=== PATIENT | female | born 1965 | race Caucasian/White ===

== ENCOUNTER → 2024-07-17 18:46 | Outpatient (REF) | payer OTHER, SELFPAY | LOC: WDC 18:46 | PROVIDERS: ATTENDING PHYSICIAN Nurse Practitioner Family | DX: Z12.31 Encounter for screening mammogram for malignant neoplasm of breast (principal) | CPT/HCPCS: 77063; 77067 ==

== ENCOUNTER 2024-08-19 05:16 | Emergency (ER) | payer OTHER, SELFPAY ==
[2024-08-19 05:18] VITALS: BP 133/95
[2024-08-19 05:32] VITALS: BP 135/74
[2024-08-19 05:39] VITALS: BMI 24.0
--- NOTE | 2024-08-19 05:44 | EDRN ---
Pt holding the R side of her head. Pt had a cavity filled couple weeks ago and finished a course of antibiotics. Pt had a L sided sore throat 2 weeks ago and says by Mon/ she was feeling good. night pt developed a R sided sore
throat and felt ill again. Yesterday, pt says the R side of her throat was still sore, her ears 'don't feel right' and she has been having 'pulsating twinges' on the R side of her head. Pt adds this area is sensitive and her also her hair is
sensitive to touch. No known injury to head. Pt has been taking tylenol and ibuprofen with last dose of 2 ibuprofen ten minutes before arrival in ED. Pt denies cp, sob, n/v, photophobia, fever/chills/cough, visual disturbance.
[2024-08-19 06:00] VITALS: BP 121/80
--- NOTE | 2024-08-19 06:16 | ED.GENMED ---
History of Present Illness
<Garcia Carlisle MD, Resident - Last Filed: 08/19/24 08:45>
General
Chief Complaint: Throat Problem
Source: patient and family
Time Seen by Provider: 08/19/24 06:01
Travel History
Have you traveled to any high risk areas for coronavirus over the past 14 days?: No
Have you had any contact with someone who has COVID-19?: Yes
Comment: Son; a month ago
Do you have any symptoms of coronavirus? Fever > 100 degrees, chills, cough, shortness of breath, sore throat, loss of taste or smell, muscle aches, or headache?: No
History of Present Illness
History of Present Illness:
Anahi Sandy, age 59, has had a sore throat for the past 10 days. She had a dental on her left side 3 weeks ago. She completed a course of amoxicillin prescribed by her dentist for the sore throat. The sore throat got worse yesterday, and now has
pain with swallowing and a right-sided headache. She has a history of migraine but says that the headache feels different than her migraine pains. The headache is intermittently throbbing and worse with touch, sudden movements and bright lights. She
was unable to sleep today due to pain. She took ibuprofen before coming to the emergency, which helped somewhat.
Past History
<Garcia Carlisle MD, Resident - Last Filed: 08/19/24 08:45>
Past History
ED Past Medical History: Other (migraine disorder)
ED Past Surgical History: Gynecological (D&C)
Social History
Tobacco: Non-smoker
Alcohol: Occasional
Personal:
Living: with family
Family History
Family History: Negative Diabetes, Hypertension, Early CAD, Asthma or Cancer
Review of Systems
<Garcia Carlisle MD, Resident - Last Filed: 08/19/24 08:45>
Review of Systems
All Other Systems: Not applicable
Constitutional: Reports fatigue
EENT: Reports sore throat
Respiratory: Reports no symptoms
Cardiac: Reports no symptoms
ABD/GI: Reports no symptoms
: Reports no symptoms
Musculoskeletal: Reports no symptoms
Skin: Reports no symptoms
Neurological: Reports headache
Endocrine: Reports no symptoms
Hematologic/Lymphatic: Reports no symptoms
Psychiatric: Reports no symptoms
Phy Exam
<Garcia Carlisle MD, Resident - Last Filed: 08/19/24 08:45>
General Physical Exam
General Presentation: well appearing and no apparent distress
General Skin: warm and dry
General Habitus: normal
General Mental: alert
General Hydration: appears well hydrated
ENT Exam
ENT Exam: EOMI, pharynx normal, neck supple, normocephalic and lymphnodes (right anterior cervical)
Eye Exam
Eye Exam: PERRL, cornea clear and conjunctiva normal
Cardiovascular Exam
Cardiovascular Exam: regular rate/rhythm, no edema, no murmur and normal peripheral pulses
Pulmonary Exam
Pulmonary Exam: lungs clear, no respiratory distress, no rales, no crackles, no rhonchi, no stridor, no wheezing and no cough
Gastrointestinal Exam
Gastrointestinal Exam: normal bowel sounds, non tender, soft, no organomegaly, no pulsatile mass and non distended
Neurological Exam
Neurological Exam: alert, oriented x3, no motor deficits and speech normal
Musculoskeletal Exam
Musculoskeletal Exam: full ROM and no edema
Skin Exam
Skin Exam: normal color, warm/dry, no rash and no petechia
Psychiatric Exam
Psychiatric Exam: normal mood/affect
Course
<Garcia Carlisle MD, Resident - Last Filed: 08/19/24 08:45>
Orders/Labs/Results
Orders:
Orders
08/19/24 06:28
COVID-19 Antigen Urgent
Source: Nasal Swab
Complete Blood Count/With Diff Urgent
Comprehensive Metabolic Panel Urgent
Comment: ADD ON
Monotest Urgent
Comment: ADD ON
Influenza A+B Rapid Molecular Urgent
JASON Source: Nasal Swab
Specimen Description:
08/19/24 06:33
Add On- LAB Urgent
Tests Added?: CMP values to BMP
08/19/24 06:34
Acetaminophen [Tylenol] 1,000 mg PO NOW STA
08/19/24 06:38
Add On- LAB Urgent
Tests Added?: mono
08/19/24 06:42
Rapid Strep Group A Urgent
JASON Source: Throat/Pharynx
Specimen Description:
Date Specimen was Collected: 08/19/24
Time Specimen was Collected: 06:38
Abnormal Lab Results
08/19/24
06:28
RBC 4.04 L 10^6/uL
(4.20-5.40)
Hgb 11.9 L g/dL
(12.0-16.0)
Hct 35.5 L %
(37.0-47.0)
BUN 19 H mg/dl
(7-17)
Glucose 105 H mg/dl
(70-99)
Alkaline Phosphatase 33 L U/L
(38-126)
08/19/24 06:28
08/19/24 06:28
Vital Signs
Initial and Last Documented VS:
Initial Vital Signs
Temp Pulse Resp BP Pulse Ox
98.8 F 88 22 133/95 97
08/19/24 05:18 08/19/24 05:18 08/19/24 05:18 08/19/24 05:18 08/19/24 05:18
Last Documented Vital Signs
Temp Pulse Resp BP Pulse Ox
98.8 F 80 16 119/81 100
08/19/24 05:18 08/19/24 08:11 08/19/24 08:11 08/19/24 08:11 08/19/24 08:11
<Wilma Waite MD - Last Filed: 08/19/24 08:31>
Orders/Labs/Results
Orders:
Orders
08/19/24 06:28
COVID-19 Antigen Urgent
Source: Nasal Swab
Complete Blood Count/With Diff Urgent
Comprehensive Metabolic Panel Urgent
Comment: ADD ON
Monotest Urgent
Comment: ADD ON
Influenza A+B Rapid Molecular Urgent
JASON Source: Nasal Swab
Specimen Description:
08/19/24 06:33
Add On- LAB Urgent
Tests Added?: CMP values to BMP
08/19/24 06:34
Acetaminophen [Tylenol] 1,000 mg PO NOW STA
08/19/24 06:38
Add On- LAB Urgent
Tests Added?: mono
08/19/24 06:42
Rapid Strep Group A Urgent
JASON Source: Throat/Pharynx
Specimen Description:
Date Specimen was Collected: 08/19/24
Time Specimen was Collected: 06:38
Abnormal Lab Results
08/19/24
06:28
RBC 4.04 L 10^6/uL
(4.20-5.40)
Hgb 11.9 L g/dL
(12.0-16.0)
Hct 35.5 L %
(37.0-47.0)
BUN 19 H mg/dl
(7-17)
Glucose 105 H mg/dl
(70-99)
Alkaline Phosphatase 33 L U/L
(38-126)
08/19/24 06:28
08/19/24 06:28
Vital Signs
Initial and Last Documented VS:
Initial Vital Signs
Temp Pulse Resp BP Pulse Ox
98.8 F 88 22 133/95 97
08/19/24 05:18 08/19/24 05:18 08/19/24 05:18 08/19/24 05:18 08/19/24 05:18
Last Documented Vital Signs
Temp Pulse Resp BP Pulse Ox
98.8 F 80 16 119/81 100
08/19/24 05:18 08/19/24 08:11 08/19/24 08:11 08/19/24 08:11 08/19/24 08:11
<Garcia Carlisle MD, Resident - Last Filed: 08/19/24 08:45>
*Critical Care Note
Total Time (30-74mins, 75-104mins- exclusive of procedures): Not Applicable
<Garcia Carlisle MD, Resident - Last Filed: 08/19/24 08:45>
Update Note
Update Note:
Pain better controlled with acetaminophen. Blood work unremarkable. Negative for COVID-19, influenza and mono. Unlikely to have an abscess or a bacterial infection. Likely a viral syndrome. Discussed rest and NSAIDs for supportive care.
ED Attending Note
<Garcia Carlisle MD, Resident - Last Filed: 08/19/24 08:45>
-
Portions of this chart may have been created with voice recognition software.� Occasional wrong word or��sound alike� substitutions may have occurred due to the inherent limitations of voice recognition software.
<Wilma Waite MD - Last Filed: 08/19/24 08:31>
ED Attending Note
Patient seen and examined by attending physician: Yes
I performed a history and physical exam of patient and discussed management with resident, I reviewed resident's note and agree with documented findings and plan of care.: Yes
ED Attending Note:
Patient appears nontoxic. She is no meningismus. On exam, she has no sign of uvular deviation nor tonsillar abscess. She has no trismus or pooled saliva pooling
She has mild bilateral cervical lymphadenopathy but no swelling or erythema of face or neck to suggest soft tissue abscess. Patient has no temporal scalp tenderness to suggest temporal to right is. Patient likely has viral illness patient has
already completed 7 days of amoxicillin. Unlikely to be bacterial.
Discharge Plan
Departure
Patient Disposition: Home (Routine Discharge)
Date of Disposition: 08/19/24
Time of Disposition: 08:41
Patient with high blood pressure during this ER visit?: No
Condition: Good
Discharge Problem:
Acute viral syndrome
Instructions: Sore Throat, Adult (DC)
Prescriptions:
No Action
No Current Medications
0
Referrals:
Neto Hoyt, DO [Family Provider] -
Stand Alone Forms: Return to Work
Activity Restrictions/Additional Instructions:
Rest for the next 3-5 days, until symptoms improve. Take acetaminophen 650 mg and ibuprofen 400 mg 6-8 hours as needed for headache and sore throat for the next 3-5 days.
Interventions
Interventions:
*Risk Screen - Suicide Last Done: 08/19/24 05:18
*General Assessment Last Done: 08/19/24 05:39
*Neglect/Abuse Screening Last Done: 08/19/24 05:39
ED- Fall Risk Assessment Last Done: 08/19/24 05:39
*ED COVID-19 Vaccine History Last Done: 08/19/24 05:39
ED-EENT Assessment Last Done: 08/19/24 05:39
ED- Pulmonary Assessment Last Done: 08/19/24 05:39
Discharge Date and Time
Print Language: FRISIAN
[2024-08-19 06:41] LABS: % Basophils 0.6 % (0-2); % Eosinophils 1.2 % (0-6); % Immature Granulocytes 0.2 % (0-0.5); % Monocytes 8.3 % (1.7-9.3); % Neutrophils 56.7 % (42.2-75.2); Absolute Eosinophils 0.1 10^3/uL (0-0.7); Absolute Lymphocytes 1.6 10^3/uL (1.2-3.4); Absolute Monocytes 0.4 10^3/uL (0.1-0.6); Absolute Neutrophils 2.7 10^3/uL (1.4-6.5); Hematocrit 35.5 % (37.0-47.0); Hemoglobin 11.9 g/dL (12.0-16.0); Mean Corp Hgb Conc. 33.5 g/dL (33.0-37.0); Mean Corpuscular Hgb 29.5 pg (27.0-31.0); Mean Corpuscular Volume 87.9 fL (81.0-99.0); Mean Platelet Volume 8.8 fL (7.4-10.4); Nucleated Red Blood Cells % 0 %; Platelet Count 206 10^3/uL (130-400); Red Blood Cell Count 4.04 10^6/uL (4.20-5.40); Red Cell Dist. Width 12.6 % (11.5-14.5); White Blood Cell Count 4.8 10^3/uL (4.8-10.8)
[2024-08-19] MEDS: TYLENOL 1000 MG PO (06:42)
[2024-08-19 06:54] LABS: ALT (SGPT) 16 U/L (0-35); AST (SGOT) 19 U/L (14-36); Alkaline Phosphatase 33 U/L (38-126); Blood Urea Nitrogen 19 mg/dl (7-17); Carbon Dioxide 27 mmol/L (22-30); Chloride 106 mmol/L (98-107); Estimated Creatinine Clearance 64 ml/min; Glucose 105 mg/dl (70-99); Potassium 4.3 mmol/L (3.5-5.1); Sodium 142 mmol/L (135-145); Total Bilirubin 0.5 mg/dl (0.2-1.3); Total Protein 6.3 g/dl (6.3-8.2); eGFR > 60.00
[2024-08-19 06:58] LABS: COVID-19 Antigen Negative (Negative)
[2024-08-19 07:00] VITALS: BP 126/86
[2024-08-19 07:31] LABS: Monotest Negative (Negative)
[2024-08-19 08:00] VITALS: BP 119/81
[2024-08-19 08:11] VITALS: BP 119/81
== END 2024-08-19 08:53 | disposition home or self-care (01) ==
LOC: EMR 05:16
PROVIDERS: Student in an Organized Health Care Education/Training Program; EMERGENCY PHYSICIAN Emergency Medicine; FAMILY PHYSICIAN Internal Medicine
DX: B34.9 Viral infection, unspecified (principal); Z11.52 Encounter for screening for COVID-19
CPT/HCPCS: 99283; 80053; 85025; 86308; 87070; 87502; 87811; 87880

== ENCOUNTER 2024-09-06 00:34 | Emergency (ER) | payer OTHER, SELFPAY ==
[2024-09-06 00:45] VITALS: BP 131/96
--- NOTE | 2024-09-06 00:56 | ED.GENMED ---
History of Present Illness
<RUBÉN Lee - Last Filed: 09/06/24 02:50>
General
Chief Complaint: Fatigue
Source: patient
Exam Limitations: none
Time Seen by Provider: 09/06/24 00:56
History of Present Illness
History of Present Illness:
This is a 59 year old female that comes in with multiple complaints. States that she was here in July and she had a sore throat and right sided headache. States that she had a fever and was just sleeping all the time. States that this all
stated after her dentist removed to filling and replaced them. States that she then had to shave the fillings down. States that after this she started with a cough. States that she has been to the PCP twice in the past month. States that she was
first put on Amoxicillin in July. Then a steroid and after this was Cefdinir which she finished 2 days ago. States that she has been coughing so hard that it will make her vomit. States that she has nausea, diarrhea, right sided headache and
there is a little numbness on the right lower chin. Denies any fever, chills, chest pain, SOB, abd pain, vomiting, dizziness, urinary burning.
Past History
<RUBÉN Lee - Last Filed: 09/06/24 02:50>
Past History
ED Past Medical History: Other (Back pain, constipation, hernia)
ED Past Surgical History: Gynecological (D&E )
Social History
Alcohol: None
Personal:
Living: with family
<BÁRBARA Arnold - Last Filed: >
Past History
ED Past Medical History: Other (migraine disorder)
ED Past Surgical History: Gynecological (D&C)
Social History
Tobacco: Non-smoker
Alcohol: Occasional
Personal:
Living: with family
Family History
Family History: Negative Diabetes, Hypertension, Early CAD, Asthma or Cancer
Review of Systems
<RUBÉN Lee - Last Filed: 09/06/24 02:50>
Review of Systems
All Other Systems: ROS reviewed and negative except as documented in HPI and ROS
Constitutional: Reports fatigue; Denies fever or chills
EENT: Reports no symptoms
Respiratory: Reports cough; Denies trouble breathing
Cardiac: Denies chest pain
ABD/GI: Reports nausea and diarrhea; Denies abdominal pain or vomiting
: Reports no symptoms; Denies dysuria, frequency or urgency
Musculoskeletal: Reports no symptoms
Skin: Reports no symptoms
Neurological: Reports headache; Denies dizzy
Psychiatric: Reports no symptoms
Phy Exam
<RUBÉN Lee - Last Filed: 09/06/24 02:50>
General Physical Exam
General Presentation: no apparent distress
General age: appears stated age
General Skin: warm and dry
General Habitus: normal
General Mental: alert
General Hydration: appears well hydrated
ENT Exam
ENT Exam: TM's normal, pharynx normal and neck supple
Eye Exam
Eye Exam: EOMI
Cardiovascular Exam
Cardiovascular Exam: regular rate/rhythm, no edema, no murmur and normal peripheral pulses
Pulmonary Exam
Pulmonary Exam: lungs clear, no respiratory distress, no rales, chest non tender, no crackles, no rhonchi and no cough
Gastrointestinal Exam
Gastrointestinal Exam: normal bowel sounds, non tender, soft, no pulsatile mass and non distended
Musculoskeletal Exam
Musculoskeletal Exam: full ROM and no edema
Skin Exam
Skin Exam: normal color, warm/dry, no rash and no petechia
Psychiatric Exam
Psychiatric Exam: normal mood/affect
Sepsis
<RUBÉN Lee - Last Filed: 09/06/24 02:50>
Sepsis Screening
Sepsis Assessment: Sepsis Ruled Out
Sepsis Screen
Sepsis Screen: Sepsis Ruled Out
Date: 09/06/24
Time: 02:50
<BÁRBARA Arnold - Last Filed: >
Sepsis Screen
Sepsis Screen: Possible Sepsis
Date: 09/06/24
Time: 00:56
Course
<RUBÉN Lee - Last Filed: 09/06/24 02:50>
Orders/Labs/Results
Orders:
Orders
09/06/24 01:28
CT Cervical Spine W/o Iv Contr Urgent
Comment:
Reason For Exam: neck pain
CT Head W/o Iv Contrast Urgent
Comment:
Reason For Exam: Right sided headache,
09/06/24 01:33
COVID-19 Antigen Urgent
Source: Nasal Swab
Complete Blood Count/With Diff Urgent
Comprehensive Metabolic Panel Urgent
D-Dimer Urgent
Monotest Urgent
Influenza A+B Rapid Molecular Urgent
JASON Source: Nasal Swab
Specimen Description:
09/06/24 01:40
Electrocardiogram (*1) Urgent
Reason for Study: Fatigue / Weakness
EKG- Treatment ONCE
09/06/24 02:13
CR Chest - 2 Views Urgent
Comment:
Reason For Exam: Cough
Abnormal Lab Results
09/06/24
01:33
RBC 3.96 L 10^6/uL
(4.20-5.40)
Hgb 11.9 L g/dL
(12.0-16.0)
Hct 33.4 L %
(37.0-47.0)
Glucose 101 H mg/dl
(70-99)
Alkaline Phosphatase 32 L U/L
(38-126)
09/06/24 01:33
10/18/24 01:33
H/H slightly low. Glucose nonfasting. ALk phos slightly low. D-dimer <0.27, Yazoo negative, COVID and Influenza negative.
Vital Signs
Initial and Last Documented VS:
Initial Vital Signs
Temp Pulse Resp BP Pulse Ox
99.5 F 99 22 131/96 96
09/06/24 00:45 09/06/24 00:45 09/06/24 00:45 09/06/24 00:45 09/06/24 00:45
Last Documented Vital Signs
Temp Pulse Resp BP Pulse Ox
99.2 F 85 18 137/82 95
09/06/24 01:19 09/06/24 02:15 09/06/24 02:00 09/06/24 02:00 09/06/24 02:15
<Tiarra Samuel [facility] - Last Filed: >
Orders/Labs/Results
Orders:
Orders
09/06/24 01:28
CT Cervical Spine W/o Iv Contr Urgent
Comment:
Reason For Exam: neck pain
CT Head W/o Iv Contrast Urgent
Comment:
Reason For Exam: Right sided headache,
09/06/24 01:33
COVID-19 Antigen Urgent
Source: Nasal Swab
Complete Blood Count/With Diff Urgent
Comprehensive Metabolic Panel Urgent
D-Dimer Urgent
Monotest Urgent
Influenza A+B Rapid Molecular Urgent
JASON Source: Nasal Swab
Specimen Description:
09/06/24 01:40
Electrocardiogram (*1) Urgent
Reason for Study: Fatigue / Weakness
EKG- Treatment ONCE
09/06/24 02:13
CR Chest - 2 Views Urgent
Comment:
Reason For Exam: Cough
Abnormal Lab Results
09/06/24
01:33
RBC 3.96 L 10^6/uL
(4.20-5.40)
Hgb 11.9 L g/dL
(12.0-16.0)
Hct 33.4 L %
(37.0-47.0)
Glucose 101 H mg/dl
(70-99)
Alkaline Phosphatase 32 L U/L
(38-126)
09/06/24 01:33
09/06/24 01:33
Vital Signs
Initial and Last Documented VS:
Initial Vital Signs
Temp Pulse Resp BP Pulse Ox
99.5 F 99 22 131/96 96
09/06/24 00:45 09/06/24 00:45 09/06/24 00:45 09/06/24 00:45 09/06/24 00:45
Last Documented Vital Signs
Temp Pulse Resp BP Pulse Ox
99.2 F 85 18 137/82 95
09/06/24 01:19 09/06/24 02:15 09/06/24 02:00 09/06/24 02:00 09/06/24 02:15
<RUBÉN Lee - Last Filed: 09/06/24 02:50>
MDM/Problems Addressed
Differential Diagnosis Includes:
Yazoo, Lyme disease, PE
MDM/Problems Addressed:
This is a 59 year old female that comes in with multiple complaints. States that this has been going on since July and she can't take it any more. States that she has had labs and seen her PCP. States that she has been on antibiotics and
steroids. States that she has right sided head pain, and is very fatigued. states that she has been in bed most of the past month.
Will check labs. CT head and neck.
Back into see patient and . Explained that her blood work is normal. COVID and influenza are negative. D-dimer and mono negative. CT of the head and cervical spine normal. Patient to follow up with the ENT specialist for further evaluation.
Explained to patient that this may all be a viral illness. Patient to return with any concerns.
Chronic conditions affecting care:
NA
Acute Exacerbation and/or Progression of Chronic Illness:
NA
<RUBÉN Lee - Last Filed: 09/06/24 02:50>
*Radiology
Radiology exam reviewed: preliminary read by ED provider (Chest- Negative for active disease) and radiology read reviewed (CT head and cervical spine- Night hawk- Head- NO evidence for acute intracranial process or calvarial fractures. Cervical
spine No evidence for acute fracture. Slight Multilevel spondylolisthesis. Mild degenerative changes. )
*Pulse Oximetry
Patient hypoxic: no
*EKG
Interpreted by ED Provider?: Yes
Heart Rate: 75
Rate: normal
Rhythm: sinus
Wiggins: normal axis
Interval: normal interval
QRS Pattern: low voltage
Ischemia: no ischemia
*Classroom Assistant Interpretation
Rate: normal
Heart Rate: 75
Rhythm: sinus
*Critical Care Note
Total Time (30-74mins, 75-104mins- exclusive of procedures): Not Applicable
ED Attending Note
<BÁRBARA Arnold - Last Filed: >
-
Portions of this chart may have been created with voice recognition software.� Occasional wrong word or��sound alike� substitutions may have occurred due to the inherent limitations of voice recognition software.
Discharge Plan
Departure
Patient Disposition: Home (Routine Discharge)
Date of Disposition: 09/06/24
Time of Disposition: 02:44
Patient with high blood pressure during this ER visit?: Yes
Condition: Good
Covid-19: Negative COVID-19
Discharge Problem:
Sore throat (viral), Cough in adult
Instructions: Cough, Adult ED, BLOOD PRESSURE, Sore Throat - Adult
Prescriptions:
No Action
No Current Medications
0
Referrals:
PRIVATE,PHYSICIAN [Family Provider] -
Roxanne Steen MD [Active] - Call in 1-3 days for appt
Activity Restrictions/Additional Instructions:
As discussed, your blood work is normal. Your CT of the head and cervical spine are normal. You are negative for COVID, Influenza, Yazoo and your D-dimer is negative. Please follow up with the ENT specialist for further evaluation. IF YOU HAVE ANY
OTHER CONCERNS PLEASE RETURN TO THE EMERGENCY ROOM.
Interventions
Interventions:
*Risk Screen - Suicide Last Done: 09/06/24 00:50
*General Assessment Last Done: 09/06/24 01:15
*Neglect/Abuse Screening Last Done: 09/06/24 01:12
ED- Fall Risk Assessment Last Done: 09/06/24 01:14
*ED COVID-19 Vaccine History Last Done: 09/06/24 00:50
Discharge Date and Time
Print Language: AZERI
[2024-09-06 01:09] VITALS: BP 124/84
[2024-09-06 01:11] VITALS: BMI 20.7
[2024-09-06 01:42] LABS: % Basophils 0.8 % (0-2); % Eosinophils 1.3 % (0-6); % Immature Granulocytes 0.2 % (0-0.5); % Lymphocytes 40.4 % (20.5-51.1); % Monocytes 6.3 % (1.7-9.3); Absolute Eosinophils 0.1 10^3/uL (0-0.7); Absolute Lymphocytes 1.9 10^3/uL (1.2-3.4); Absolute Monocytes 0.3 10^3/uL (0.1-0.6); Absolute Neutrophils 2.5 10^3/uL (1.4-6.5); Hematocrit 33.4 % (37.0-47.0); Hemoglobin 11.9 g/dL (12.0-16.0); Mean Corp Hgb Conc. 35.6 g/dL (33.0-37.0); Mean Corpuscular Hgb 30.1 pg (27.0-31.0); Mean Corpuscular Volume 84.3 fL (81.0-99.0); Nucleated Red Blood Cells % 0 %; Platelet Count 224 10^3/uL (130-400); Red Blood Cell Count 3.96 10^6/uL (4.20-5.40); Red Cell Dist. Width 12.4 % (11.5-14.5); White Blood Cell Count 4.8 10^3/uL (4.8-10.8)
[2024-09-06 01:55] LABS: ALT (SGPT) 16 U/L (0-35); AST (SGOT) 19 U/L (14-36); Albumin 4.5 g/dl (3.5-5.0); Alkaline Phosphatase 32 U/L (38-126); Blood Urea Nitrogen 16 mg/dl (7-17); Calcium 9.7 mg/dl (8.4-10.2); Carbon Dioxide 24 mmol/L (22-30); Chloride 104 mmol/L (98-107); D-Dimer < 0.27 ug/mlFEU (0.00-0.50); Estimated Creatinine Clearance 76 ml/min; Glucose 101 mg/dl (70-99); Sodium 139 mmol/L (135-145); Total Bilirubin 0.8 mg/dl (0.2-1.3); Total Protein 6.7 g/dl (6.3-8.2); eGFR > 60.00
[2024-09-06 01:59] LABS: Monotest Negative (Negative)
[2024-09-06 02:00] VITALS: BP 137/82
[2024-09-06 02:04] LABS: COVID-19 Antigen Negative (Negative)
== END 2024-09-06 03:07 | disposition home or self-care (01) ==
LOC: EMR 00:34
PROVIDERS: Clinical Nurse Specialist Family Health; EMERGENCY PHYSICIAN Student in an Organized Health Care Education/Training Program
DX: R07.0 Pain in throat (principal); R05.9 Cough, unspecified
CPT/HCPCS: 99284; 70450; 71046; 72125; 80053; 85025; 85379; 86308; 87502; 87811; 93005

== ENCOUNTER 2024-11-06 06:21 | Day surgery (SDC) | payer OTHER, SELFPAY | END 2024-11-06 14:40 | disposition home or self-care (01) | LOC: GI 06:21 | PROVIDERS: ATTENDING PHYSICIAN Internal Medicine Gastroenterology | DX: Z12.11 Encounter for screening for malignant neoplasm of colon (principal); K64.8 Other hemorrhoids; D12.4 Benign neoplasm of descending colon | CPT/HCPCS: 45385; 88305 ==

== ENCOUNTER → 2025-08-19 18:01 | Outpatient (REF) | payer OTHER, SELFPAY | LOC: WDC 18:01 | PROVIDERS: ATTENDING PHYSICIAN Nurse Practitioner Family; FAMILY PHYSICIAN Internal Medicine | DX: Z12.31 Encounter for screening mammogram for malignant neoplasm of breast (principal) | CPT/HCPCS: 77063; 77067 ==